=== PATIENT | female | born 1985 | race Caucasian/White ===

== ENCOUNTER 2025-01-04 09:43 | Outpatient (RCR) | payer BC, SELFPAY ==
--- NOTE | 2025-01-04 11:14 | HMH.OPLYMPH ---
Rehab Inpt Wound Evaluation Rehab OP Lymphedema Evaluation Start: 01/04/25 10:02 Freq: Status: Active Protocol: Document 01/04/25 10:51 JEREMY (Rec: 01/04/25 11:14 [email or web address] [id number]) E-signed By Aleksander Ward, PT Subjective/History History History This is the initial PT eval for Desiree Romero, 39 yowf who presents with c/o C LE pain and feelings of heaviness worse x ~ 1 yr. She was recently diagnosed with Lipidema and exhibits many of the hallmarks of its early stages. She reports increased B LE pain that is intermittently worse. She has lost ~ 60lbs over the past year with a combination if diet changes and medication, which has significantly helped her symptoms . She had liposuction performed on her abdomen and hips ! 2 yrs ago which also reduced her pain, but she the adipose tissue is beginning to return. She reports no significant PMH, but does feel her mother had similar presentation of symptoms. Subjective Subjective Currently pain in B LE is 4/10, at worst pain is 8/10, and pain is generally constant but variable in nature. She presents with multiple varieties of palpable adipose nodules from rice grain to nickel sized throughout B LE. She has 1/4 TTP to B LE throughout. She feels her symptoms are worse when she is going through her menstrual cycle due to increased inflammation. She has score of 7/09 on the beighton scale for hyperflexibility. LLIS score: 45 Lymphedema Eval Classification of Lymphedema Other Lymphedema Yes: Lipidema Cause Stemmer's sign Stemmer's Sign no Stage of Lymphedema Lymphedema stages Stage 0 (subjective c/o heaviness and aching) Skin Changes Dry Skin Yes Skin Folds Yes Other Changes Yes Pain Scale Pain Scale (0-10) 4 Affected Extremities Areas Affected by Right Lower Extremity,Left Lower Extremity Lymphedema/Edema Lower Extremity Measurements Right MTP Measurement (cm) 19.9 Heel Measurement (cm 27.0 ) 10 cm Proximal to 25.1 Lateral Malleoli Measurement (cm) 20 cm Proximal to 32.1 Lateral Malleoli Measurement (cm) 30 cm Proximal to 35.0 Lateral Malleoli Measurement (cm) 40 cm Proximal to 33.9 Lateral Malleoli Measurement (cm) 50 cm Proximal to 0 Lateral Malleoli Measurement (cm) 60 cm Proximal to 0 Lateral Malleoli Measurement (cm) Lower Extremity 173.0 Measurement Total ( cm) Left MTP Measurement (cm) 19.4 Heel Measurement (cm 27.1 ) 10 cm Proximal to 25.3 Lateral Malleoli Measurement (cm) 20 cm Proximal to 32.8 Lateral Malleoli Measurement (cm) 30 cm Proximal to 35.0 Lateral Malleoli Measurement (cm) 40 cm Proximal to 33.4 Lateral Malleoli Measurement (cm) 50 cm Proximal to 0 Lateral Malleoli Measurement (cm) 60 cm Proximal to 0 Lateral Malleoli Measurement (cm) Lower Extremity 173.0 Measurement Total ( cm) Manual Lymphatic Drainage Treatment Area MLD Treatment Area Right Lower Extremity,Left Lower Extremity Wound Problems/Impairments Impairments Problems/ Palpation Tenderness,Impaired Endurance,Impaired Impairmments Household Care,Increased Edema,Subjective C/O Pain, Impaired Self Care/Self Management Prognosis Rehab Potential Good Comment Signs and symptoms consistent with Stage I Lipidema. Skilled therapy services are indicated in order to reduce c/o pain and reduce edema in B LE in order to aid pt improvement in QOL. Clinical Impression Consistent with Yes Diagnosis Lymphedema Patient Goals Lymphedema Patient Goals Lymphedema Short in 2 wks pt will: Term Patient Goals 1) Decrease B LE pain to 2/10 at worst 2) Decrease B LE total circumferential measurements by 3 cm ea. Lymphedema Group Home in 4 wks pt will: Patient Goals 1) Decrease B LE pain to 1/10 at worst 2) Decrease B LE total circumferential measurements by 6 cm ea. 3) Pt will be independent with compression garment donning/doffing 4) pt will be independent with Lipidema management home program Outpatient Therapy Plan of Care Treatment Plan May Include Therapeutic Exercise Yes Including Home Exercise Program Manual Therapy Yes Techniques Neuromuscular Re- Yes education Therapeutic Yes Activities to Return to Previous Functional/Work Level ADL/Self Care Yes Education Orthotics/Bracing/ Yes Splinting Vasopneumatic Yes Compression Pump Manual Lymphatic Yes Drainage Eval/Re-Eval Yes Frequency Times per week 2 Duration Number of Weeks 4 Addendums This patient is a No candidate for social or vocational rehab ? Patient/Guardian Yes verbally acknowledges understanding of treatment program and consents to further treatment? Patient/Guardian Yes verbally acknowledges understanding of diagnosis, prognosis and goals for treatment? Eval Complexity PT Charges 72603 - Moderate Complexity PHYSICIAN CERTIFICATION: I certify the specified therapy services for Desiree Romero are required, authorized, and reviewed every 30 days.
== END 2025-01-04 23:59 | disposition home or self-care (01) ==
LOC: PT 09:43
PROVIDERS: Visit Provider Internal Medicine Adolescent Medicine
DX: R60.9 Edema, unspecified (principal)
CPT/HCPCS: 97162